=== PATIENT | female | born 1995 | race Caucasian/White ===

== ENCOUNTER 2017-06-08 22:30 | Emergency (ER) | payer SELFPAY ==
[2017-06-09] MEDS ORDERED: Ibuprofen 800 MG Tab PO ONE (00:37)
--- NOTE | 2017-06-09 00:54 | EDM.PDOC ---
ED HPI GENERAL MEDICAL PROBLEM - General Chief Complaint: Respiratory Problem Stated Complaint: CONGESTION COUGH SOB Time Seen by Provider: 06/08/17 23:20 Source of Information: Reports: Patient History Limitations: Reports: No Limitations - History of Present Illness INITIAL COMMENTS - FREE TEXT/NARRATIVE: 22-year-old female presents for evaluation treatment of cough and cold symptoms. Reports that the symptoms started on May 30. Reports symptoms initially started with a runny nose. She then developed a sore throat and cough. She reports she has also been having a hoarse voice. States her sore throat has now resolved. Current symptoms include chills, productive cough and hoarse voice. She denies any nausea, vomiting or diarrhea. States that she is coughing up a black sputum. Reports she's had a good appetite. Has been using NyQuil and DayQuil as well as cough drops with little symptom relief. Patient is an asthmatic. Uses albuterol and Provera. According to nursing staff she shared with him that she's not using these as prescribed. States that she relocates [place] from [place] about 7 months ago and has been feeling well so therefore she has not used the inhalers as prescribed. No influenza vaccine this year. No primary care provider. Chest Pain Score (Numeric/FACES): 3 - Related Data Allergies Allergy/AdvReac Type Severity Reaction Status Date / Time No Known Allergies Allergy Verified 06/08/17 22:48 Home Meds: Home Meds Albuterol [Proair HFA] 1 puff INH DAILY 06/08/17 [History] Fluticasone/Salmeterol [Advair 500-50] 1 puff INH Q4H PRN 06/08/17 [History] Azithromycin [IMW: Azithromycin] 250 mg PO DAILY #6 tab 06/09/17 [Rx] Past Medical History HEENT History: Reports: Allergic Rhinitis Respiratory History: Reports: Asthma, Sleep Apnea Social & Family History - Family History Family Medical History: Noncontributory Cardiac: Reports: Hypertension Respiratory: Reports: Asthma Endocrine/Metabolic: Reports: Diabetes, type II - Tobacco Use Smoking Status *Q: Never Smoker Second Hand Smoke Exposure: No - Caffeine Use Caffeine Use: Reports: Soda - Recreational Drug Use Recreational Drug Use: No ED ROS GENERAL - Review of Systems Review Of Systems: See Below Constitutional: Reports: Chills. Denies: Fever HEENT: Reports: Throat Pain Course - Vital Signs Last Recorded V/S: Last Vital Signs Temp 36.6 C 06/08/17 22:41 Pulse 97 06/08/17 22:41 Resp 12 06/08/17 22:41 BP 140/90 06/08/17 22:41 Pulse Ox 100 06/08/17 22:41 - Orders/Labs/Meds Meds: Medications Discontinued Medications Generic Name Dose Route Start Last Admin Trade Name Avila PRN Reason Stop Dose Admin Ibuprofen 800 mg 06/09/17 00:37 06/09/17 00:43 Motrin PO 06/09/17 00:38 800 mg ONETIME ONE Administration Departure - Departure Time of Disposition: 00:51 Disposition: Home, Self-Care 01 Condition: Fair Clinical Impression: Bronchitis - Discharge Information Prescriptions: Azithromycin [IMW: Azithromycin] 250 mg PO DAILY #6 tab Instructions: Acute Bronchitis, [id number] Referrals: PCP,None [Primary Care Provider] - Catalina Lackey MD [Physician] - Forms: ED Department Discharge Additional Instructions: use your inhalers as prescribed. Azithromycin 2 tabs on day 1 followed by 1 times on days 2 through 5 for 5 days of antibiotics total. This does stay in your system for 10 days. Rest. Make sure you drink plenty of fluids. Follow up with family medicine within 2 weeks for recheck of your symptoms. Recommend Dr. Lackey at the [facility]. Call [phone] schedule with her. Please return to ER if your symptoms change or worsen.
--- NOTE | 2017-06-09 07:26 | CR ---
Chest: Two views of the chest were obtained. Comparison: No prior chest x-ray. Heart size and mediastinum are normal. Lungs are clear. Bony structures are unremarkable. Impression: 1. Nothing acute is identified on two-view chest x-ray. Diagnostic code #1
== END 2017-06-09 01:24 | disposition home or self-care (01) ==
LOC: JD.ED 22:30
DX: J40 Bronchitis, not specified as acute or chronic (principal)
CPT/HCPCS: 71046; 71046-26; 87081; 87430; 87804; 99283; A9270-GY

== ENCOUNTER 2017-08-11 11:02 | Emergency (ER) | payer SELFPAY ==
--- NOTE | 2017-08-11 11:30 | EDM.PDOC ---
ED HPI GENERAL MEDICAL PROBLEM - General Chief Complaint: ENT Problem Stated Complaint: DENTAL COMPLAINT Time Seen by Provider: 08/11/17 11:18 Source of Information: Reports: Patient History Limitations: Reports: No Limitations - History of Present Illness INITIAL COMMENTS - FREE TEXT/NARRATIVE: Patient is a 22 y/o female who presents to the E.D. complaining of intermittent tooth pain on the left lower jaw the #18 tooth. Patient states last night a portion of the tooth fractured off. With drinking, breathing, and chewing on the affected side there is intermittent discomfort. She has been utilizing Tylenol and ibuprofen with some relief. She's contacted multiple dentists today but due to her financial issues is unable to afford it. She was admitted to the ED for further evaluation thinking we can remove the tooth. Patient has no increased swelling to the gumline or drainage noted. Pain is minimal at this time. She does have a history of poor dentition. 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 Left Lower Tooth/Teeth Pain Score (Numeric/FACES): 7 - Related Data Allergies Allergy/AdvReac Type Severity Reaction Status Date / Time No Known Allergies Allergy Verified 06/08/17 22:48 Home Meds: Home Meds Albuterol [Proair HFA] 1 puff INH DAILY 06/08/17 [History] Fluticasone/Salmeterol [Advair 500-50] 1 puff INH Q4H PRN 06/08/17 [History] Azithromycin [IMW: Azithromycin] 250 mg PO DAILY #6 tab 06/09/17 [Rx] Past Medical History HEENT History: Reports: Allergic Rhinitis Respiratory History: Reports: Asthma, Sleep Apnea Social & Family History - Family History Family Medical History: Noncontributory Cardiac: Reports: Hypertension Respiratory: Reports: Asthma Endocrine/Metabolic: Reports: Diabetes, type II - Tobacco Use Smoking Status *Q: Never Smoker Second Hand Smoke Exposure: No - Caffeine Use Caffeine Use: Reports: Tea - Recreational Drug Use Recreational Drug Use: No ED ROS ENT - Review of Systems Review Of Systems: ROS reveals no pertinent complaints other than HPI. ED EXAM, ENT - Physical Exam Exam: See Below Exam Limited By: No Limitations General Appearance: Alert, WD/WN, No Apparent Distress Ears: Hearing Grossly Normal Nose: Normal Inspection Mouth/Throat: Normal Inspection, Normal Gums, Normal Lips, Dental Pain (#18 tooth.), Other (Patient has poor dentition throughout. Partial fracture to the # 18 tooth revealing underlying dental the K. No gumline swelling. No swelling to the face noted.). No: Dental Abcess, Dental Tenderness, Dental Trauma Head: Atraumatic, Normocephalic Neck: Normal Inspection, Supple, Non-Tender, Full Range of Motion. No: Lymphadenopathy (L), Lymphadenopathy (R) Respiratory/Chest: No Respiratory Distress, Lungs Clear, Normal Breath Sounds, No Accessory Muscle Use Cardiovascular: Normal Peripheral Pulses, Regular Rate, Rhythm Neurological: Alert, Oriented, CN II-XII Intact, Normal Cognition, No Motor/ Sensory Deficits Psychiatric: Normal Affect, Normal Mood Skin: Warm, Dry, Intact, Normal Color, No Rash Course - Vital Signs Last Recorded V/S: Last Vital Signs Temp 97.3 F 08/11/17 11:07 Pulse 95 08/11/17 11:07 Resp 19 08/11/17 11:07 BP 153/101 H 08/11/17 11:07 Pulse Ox 95 08/11/17 11:07 - Re-Assessments/Exams Free Text/Narrative Re-Assessment/Exam: Patient is not have a dental infection. Treatment at this point will be Tylenol and ibuprofen along with [id number] temporary dental filling. She'll make contact with a dentist to have the tooth removed. Contact information has been provided to the patient for multiple dentists in the area and also in [place]. Discharge instructions as documented. Departure - Departure Time of Disposition: 11:30 Disposition: Home, Self-Care 01 Condition: Good Clinical Impression: Dental caries, Dental caries extending into dentin Fracture of tooth Qualifiers: Encounter type: initial encounter Fracture type: closed Qualified Code(s): S02.5XXA - Fracture of tooth (traumatic), initial encounter for closed fracture - Discharge Information Referrals: PCP,None [Primary Care Provider] - Additional Instructions: Utilize Tylenol and ibuprofen in alternating fashion for pain. In addition utilize the [id number] temporary dental filling to reduce any increased sensitivity to air and cold/hot fluids. Call make an appointment with the dentist to have tooth removed. No antibiotics required at this time. Return to the ED if you develop any new or worsening symptoms.
== END 2017-08-11 11:40 | disposition home or self-care (01) ==
LOC: JD.ED 11:02
DX: K02.9 Dental caries, unspecified (principal); K03.81 Cracked tooth; Z79.899 Other long term (current) drug therapy
CPT/HCPCS: 99282; 99283

== ENCOUNTER 2017-12-12 20:17 | Emergency (ER) | payer SELFPAY ==
[2017-12-12] MEDS ORDERED: Doxycycline 100 MG Cap PO ONE (22:08)
--- NOTE | 2017-12-12 22:21 | EDM.PDOC ---
ED HPI GENERAL MEDICAL PROBLEM - General Chief Complaint: Genitourinary Problem Stated Complaint: SWOLLEN VAGINAL AREA Time Seen by Provider: 12/12/17 21:50 Source of Information: Reports: Patient History Limitations: Reports: No Limitations - History of Present Illness INITIAL COMMENTS - FREE TEXT/NARRATIVE: 22 year old female presents for evaluation and treatment of a painful, itchy, swollen area to the vaginal . Present for the last 2-3 days and is worsening. 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 No fevers, chills, nausea, vomiting or vaginal discharge. Denies any dysuria but reports when urine touches the area it is quite painful. Reports walking is painful. Reports the area is primarily on the right it is swollen, itchy and painful. Has never had anything like this before. No history of MRSA. No history of diabetes. Patient reports she is sexually active She has no appreciated any vaginal discharge. Reports she was checked for STDs about 1 year ago which was unremarkable. Vaginal Pain Score (Numeric/FACES): 3 - Related Data Allergies Allergy/AdvReac Type Severity Reaction Status Date / Time No Known Allergies Allergy Verified 12/12/17 20:33 Home Meds: Home Meds Albuterol [Proair HFA] 1 puff INH DAILY 06/08/17 [History] Fluticasone/Salmeterol [Advair 500-50] 1 puff INH Q4H PRN 06/08/17 [History] Doxycycline [Vibramycin] 100 mg PO BID #19 tab 12/12/17 [Rx] Past Medical History HEENT History: Reports: Allergic Rhinitis Respiratory History: Reports: Asthma, Sleep Apnea Psychiatric History: Reports: Anxiety, Depression Social & Family History - Family History Family Medical History: Noncontributory Cardiac: Reports: Hypertension Respiratory: Reports: Asthma Endocrine/Metabolic: Reports: Diabetes, type II - Tobacco Use Smoking Status *Q: Never Smoker - Caffeine Use Caffeine Use: Reports: None - Recreational Drug Use Recreational Drug Use: Yes Recreational Drug Type: Reports: Marijuana/Hashish Recreational Drug Use Frequency: Daily ED ROS GENERAL - Review of Systems Review Of Systems: See Below Constitutional: Denies: Fever, Chills GI/Abdominal: Denies: Nausea, Vomiting : Reports: Pain (pain to the right labia). Denies: Discharge, Dysuria Skin: Reports: Pruritis (right labia majora) ED EXAM, RENAL/ - Physical Exam Exam: See Below Exam Limited By: No Limitations General Appearance: Alert, WD/WN, No Apparent Distress, Obese Respiratory/Chest: No Respiratory Distress, Lungs Clear, Normal Breath Sounds Cardiovascular: Normal Peripheral Pulses, Regular Rate, Rhythm, No Murmur Neurological: Alert, Oriented, Normal Cognition Psychiatric: Normal Affect, Normal Mood Skin Exam: Warm, Dry, Erythema (right labia majora, no obvious abscess, superficial open area to the right labia majora, no prurlent drainage) Course - Vital Signs Last Recorded V/S: Last Vital Signs Temp 98.5 F 12/12/17 20:29 Pulse 118 H 12/12/17 20:29 Resp 18 12/12/17 20:29 BP 141/89 H 12/12/17 20:29 Pulse Ox 99 12/12/17 20:29 - Orders/Labs/Meds Meds: Medications Discontinued Medications Generic Name Dose Route Start Last Admin Trade Name Freq PRN Reason Stop Dose Admin Doxycycline Hyclate 100 mg 12/12/17 22:08 12/12/17 22:11 Vibramycin PO 12/12/17 22:09 100 mg ONETIME ONE Administration - Re-Assessments/Exams Free Text/Narrative Re-Assessment/Exam: 12/12/17 22:14 Patient appears to have cellulites to the right labia majora. No obvious abscess. Superficial open area approximately 0.5cm in diameter present over the cellulites. No purulent drainage. No history of MRSA. No history of diabetes. Will start doxycycline. Follow-up in clinic if not much better. Discharge instructions as documented. Departure - Departure Time of Disposition: 22:18 Disposition: Home, Self-Care 01 Condition: Fair Clinical Impression: Cellulitis - Discharge Information *PRESCRIPTION DRUG MONITORING PROGRAM REVIEWED*: No *COPY OF PRESCRIPTION DRUG MONITORING REPORT IN PATIENT ASHLEY: No Prescriptions: Doxycycline [Vibramycin] 100 mg PO BID #19 tab Instructions: Cellulitis, Adult, Cellulitis, Adult, Iiwg-tc-[id number] Referrals: PCP,None [Primary Care Provider] - Rafael Curran MD [Physician] - Forms: ED Department Discharge Additional Instructions: [id number] Tylenol or Motrin as needed for pain relief. Take the doxycycline as prescribed. 1 tab twice a day for 10 days. your first dose was given in the ED. Start your prescription tomorrow. Doxycycline can cause photosensitivity. Make sure you where plenty of sunscreen or avoid the sun while you are on this medication. Use a warm compress to the area 3 or 4 times a day the area drained. Follow-up with OB in 7-10 days if not much better. Recommend Dr. Curran at the [facility]. Call [phone] to schedule with him. Please return to the ER if your symptoms change or worsen.
== END 2017-12-12 22:27 | disposition home or self-care (01) ==
LOC: JD.ED 20:17
DX: N76.2 Acute vulvitis (principal); Z79.899 Other long term (current) drug therapy
CPT/HCPCS: 99283; A9270

== ENCOUNTER 2019-01-01 17:54 | Emergency (ER) | payer SELFPAY ==
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
--- NOTE | 2019-01-01 19:05 | CT ---
CT lumbar spine Technique: Multiple axial sections were obtained from above T11 inferiorly through the inferior S4 level. Reconstructed coronal and sagittal images were obtained. Limitations: Decreased details due to photo attenuation from body habitus. Findings: Vacuum phenomena is noted within both sacroiliac joints. No traumatic disc herniation is seen. No fracture is identified. No abnormal subluxation is seen. Impression: 1. Vacuum phenomena within the sacroiliac joints. This is a nonacute finding. 2. Detail are somewhat diminished due to body habitus. Within this limitation, no discrete fracture or other acute abnormality is seen. Diagnostic code #2
== END 2019-01-01 19:10 | disposition home or self-care (01) ==
LOC: JD.ED 17:54
DX: S39.012A Strain of muscle, fascia and tendon of lower back, initial encounter (principal); J45.909 Unspecified asthma, uncomplicated; I10 Essential (primary) hypertension; E11.9 Type 2 diabetes mellitus without complications; Z79.51 Long term (current) use of inhaled steroids; Z79.899 Other long term (current) drug therapy; V49.49XA Driver injured in collision with other motor vehicles in traffic accident, initial encounter
CPT/HCPCS: 72131; 72131-26; 99282; 99284-25

== ENCOUNTER 2019-01-27 16:02 | Emergency (ER) | payer SELFPAY ==
[2019-01-27] MEDS ORDERED: Furosemide 40 MG Tab PO ONE (20:25)
--- NOTE | 2019-01-27 20:33 | EDM.PDOC ---
ED HPI GENERAL MEDICAL PROBLEM - General Chief Complaint: Cardiovascular Problem Stated Complaint: LEGS AND FEET SWOLLEN Time Seen by Provider: 01/27/19 17:15 Source of Information: Reports: Patient, RN Notes Reviewed - History of Present Illness INITIAL COMMENTS - FREE TEXT/NARRATIVE: 23-year-old lady presents to the ED with leg and ankle swelling. She states this actually started about 6 months ago but the swelling has gotten worse. Achiness of her lower feet and ankles and legs. 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 She is quite overweight but other than that has no known medical problems. No recent injury. No chest or abdominal pain, no difficulty breathing. Bilateral Lower Leg Pain Score (Numeric/FACES): 0 - Related Data Allergies Allergy/AdvReac Type Severity Reaction Status Date / Time No Known Allergies Allergy Verified 01/27/19 16:13 Home Meds: Home Meds Albuterol [Proair HFA] 1 puff INH DAILY 06/08/17 [History] Fluticasone Propionate [Flonase] 1 inh [place] DAILY 01/01/19 [History] Furosemide [Lasix] 20 mg PO DAILY #30 tab 01/27/19 [Rx] Past Medical History HEENT History: Reports: Allergic Rhinitis Respiratory History: Reports: Asthma, Sleep Apnea Psychiatric History: Reports: Anxiety, Depression Social & Family History - Family History Family Medical History: Noncontributory Cardiac: Reports: Hypertension Respiratory: Reports: Asthma Endocrine/Metabolic: Reports: Diabetes, type II - Tobacco Use Smoking Status *Q: Never Smoker - Caffeine Use Caffeine Use: Reports: None - Recreational Drug Use Recreational Drug Use: No - Living Situation & Occupation Living situation: Reports: Single Occupation: Employed ED ROS GENERAL - Review of Systems Review Of Systems: See Below Constitutional: Denies: Fever, Chills, Diaphoresis HEENT: Reports: No Symptoms Respiratory: Denies: Shortness of Breath Cardiovascular: Reports: Edema (Bilateral lower legs ankles and feet). Denies: Chest Pain GI/Abdominal: Denies: Abdominal Pain, Nausea, Vomiting Musculoskeletal: Denies: Joint Pain Skin: Denies: Rash, Erythema ED EXAM, GENERAL - Physical Exam Exam: See Below General Appearance: Alert, No Apparent Distress Throat/Mouth: Normal Inspection, Normal Oropharynx Head: Atraumatic Neck: Supple Respiratory/Chest: No Respiratory Distress, Lungs Clear, Normal Breath Sounds Cardiovascular: Regular Rate, Rhythm GI/Abdominal: Non-Tender Extremities: Pedal Edema (Very mild swelling of the feet and ankles, lower legs. No calf tenderness, no rash, warmth or erythema.) Neurological: Alert, Oriented, No Motor/Sensory Deficits Skin Exam: Warm, Dry, Normal Color Course - Vital Signs Last Recorded V/S: Last Vital Signs Temp 98.2 F 01/27/19 16:13 Pulse 98 01/27/19 16:13 Resp 20 01/27/19 16:13 BP 136/82 01/27/19 20:04 Pulse Ox 100 01/27/19 16:13 - Orders/Labs/Meds Labs: Laboratory Tests 01/27/19 01/27/19 Range/Units 17:35 17:35 WBC 11.80 H (3.98-10.04) K/mm3 RBC 4.30 (3.98-5.22) M/mm3 Hgb 11.6 (11.2-15.7) gm/dl Hct 36.2 (34.1-44.9) % MCV 84.2 (79.4-94.8) fl MCH 27.0 (25.6-32.2) pg MCHC 32.0 L (32.2-35.5) g/dl RDW Std Deviation 46.8 H (36.4-46.3) fL Plt Count 282 (182-369) K/mm3 MPV 11.2 (9.4-12.3) fl Neut % (Auto) 66.3 (34.0-71.1) % Lymph % (Auto) 19.9 (19.3-51.7) % [place] % (Auto) 6.2 (4.7-12.5) % Eos % (Auto) 6.9 H (0.7-5.8) Baso % (Auto) 0.4 (0.1-1.2) % Neut # (Auto) 7.82 H (1.56-6.13) K/mm3 Lymph # (Auto) 2.35 (1.18-3.74) K/mm3 [place] # (Auto) 0.73 H (0.24-0.36) K/mm3 Eos # (Auto) 0.81 H (0.04-0.36) K/mm3 Baso # (Auto) 0.05 (0.01-0.08) K/mm3 Manual Slide Review Normal smear Sodium 143 (136-145) mEq/L Potassium 4.0 (3.5-5.1) mEq/L Chloride 109 H (98-107) mEq/L Carbon Dioxide 27 (21-32) mEq/L Anion Gap 11.0 (5-15) BUN 12 (7-18) mg/dL Creatinine 0.8 (0.55-1.02) mg/dL Est Cr Clr Drug Dosing 90.47 mL/min Estimated GFR (MDRD) > 60 (>60) mL/min BUN/Creatinine Ratio 15.0 (14-18) Glucose 85 (74-106) mg/dL Calcium 9.1 (8.5-10.1) mg/dL Total Bilirubin 0.2 (0.2-1.0) mg/dL AST 10 L (15-37) U/L ALT 17 (14-59) U/L Alkaline Phosphatase 84 (46-116) U/L Total Protein 6.6 (6.4-8.2) g/dl Albumin 3.3 L (3.4-5.0) g/dl Globulin 3.3 gm/dL Albumin/Globulin Ratio 1.0 (1-2) TSH 3rd Generation 2.630 (0.358-3.74) uIU/mL Meds: Medications Discontinued Medications Generic Name Dose Route Start Last Admin Trade Name Traeq PRN Reason Stop Dose Admin Furosemide 20 mg 01/27/19 20:25 01/27/19 20:33 Lasix PO 01/27/19 20:26 Not Given ONETIME ONE - Re-Assessments/Exams Free Text/Narrative Re-Assessment/Exam: 01/28/19 21:09 Labs did come back all relatively normal. She does have some mild fluid retention and being on her feet for 7to 8 hours a day working is not helping her. Also she is very overweight with a BMI of 67. I discussed all of this with her. She needs to see a provider, have a good health physical and have a provider to work with her on the fluid retention but also her weight, general health and well-being. I am going to start her on Lasix 20 mg daily. Discharge instructions as documented. Departure - Departure Time of Disposition: 20:31 Disposition: Home, Self-Care 01 Condition: Fair Clinical Impression: Fluid retention in legs Prescriptions: Furosemide [Lasix] 20 mg PO DAILY #30 tab Instructions: Edema, [id number] Referrals: PCP,None [Primary Care Provider] - Forms: ED Department Discharge Additional Instructions: Avoid salty foods, try eat a cardiac healthy diet. Try eat a lot of fruit and vegetables, avoid flour and sugar foods as best you can. Begin a regular exercise program, elevate feet and legs when not standing or walking. Furosemide 20 mg this evening and then 20 mg every morning until otherwise directed. Follow up with one of our clinic providers next week or next available appointment. Call [phone] for appointment.
== END 2019-01-27 20:40 | disposition home or self-care (01) ==
LOC: JD.ED 16:02
DX: R60.0 Localized edema (principal); J45.909 Unspecified asthma, uncomplicated; F41.9 Anxiety disorder, unspecified; F32.9 Major depressive disorder, single episode, unspecified; Z79.899 Other long term (current) drug therapy
CPT/HCPCS: 36415; 80053; 84443; 85025; 93005; 99285-25

== ENCOUNTER 2022-04-20 19:03 | Emergency (ER) | payer SELFPAY ==
[2022-04-20] MEDS ORDERED: predniSONE 20 MG Tab PO ONE (19:46)
[2022-04-20 20:19] LABS: CORONAVIRUS COVID-19 NAA NEGATIVE (NEGATIVE)
[2022-04-20] MEDS ORDERED: Ketorolac 60 MG/2 ML SDV IM ONE (20:21)
== END 2022-04-20 21:31 | disposition home or self-care (01) ==
LOC: JD.ED 19:03
DX: J02.9 Acute pharyngitis, unspecified (principal); J45.909 Unspecified asthma, uncomplicated; Z79.899 Other long term (current) drug therapy; Z20.822 Contact with and (suspected) exposure to COVID-19
CPT/HCPCS: 0241U; 36415; 80053; 85025; 86140; 86308; 87651; 96372; 99283; J1885